=== PATIENT | female | born 1995 | race African-American/Black ===

== ENCOUNTER 2020-10-09 09:55 | Emergency (ER) | payer OTHER, SELFPAY ==
[2020-10-09 10:10] VITALS: BP 112/62; PULSE 90; RESP 16; TEMP 37.3; O2SAT 99
--- NOTE | 2020-10-09 10:18 | ED.DENTAL ---
HPI - Dental/Oral General Chief complaint: Dental/Oral Stated complaint: abscess in mouth Time Seen by Provider: 10/09/20 10:19 Source: patient and RN notes reviewed Mode of arrival: ambulatory Limitations: no limitations History of Present Illness HPI Narrative: 25-year-old female presents with concern for dental pain, a bump on her gumline. Reports she has been having left lower dental pain for about a week, noticed a bump on her gumline yesterday. She denies any foul taste in her mouth, swollen lips, swollen tongue, drooling, difficulty swallowing, fever, body aches, chills. Reports she does not currently have a dentist. Reports she has had a dental abscess in the past and another area of her mouth. MD Complaint: tooth pain Location: Tooth # (19) Related Data Home Medications Medication Instructions Recorded Confirmed medroxyprogesterone [Depo-Provera 150 mg IM [id number] 10/09/20 10/09/20 Contraceptive] Allergies Allergy/AdvReac Type Severity Reaction Status Date / Time No Known Allergies Allergy Verified 10/09/20 10:15 Review of Systems Review of Systems: Narrative: CONSTITUTIONAL: Denies malaise, chills, sweats, or fever. EYES: Denies visual changes, redness, or discharge. ENT: Denies swollen lips, swollen tongue, drooling. Reports left lower dental pain, bump on her gumline CARDIOVASCULAR: Denies chest pain, palpitations, or edema. RESPIRATORY: Denies cough or dyspnea. GASTROINTESTINAL: Denies abdominal pain, nausea, vomiting SKIN: Denies rash or itching. MUSCULOSKELETAL: Denies myalgia. NEUROLOGIC: Denies numbness, weakness, or headache. All systems reviewed & are unremarkable except as noted in HPI and below PMFSH Social History Social History Gender identity (if verbalized by the patient): Female Comments At time of signature, agree with nursing past medical, surgical, social and family history. There is no relevant family history pertinent to the presenting complaint Exam Narrative: Exam Narrative: GENERAL: Well-appearing, well-nourished, and in no acute distress. HEAD: Normocephalic, atraumatic. EYES: PERRLA, conjunctivae clear, and EOMI. No nystagmus. ENT: Nares clear, turbinates pink, no rhinorrhea or epistaxis. Mucous membranes moist. Oropharynx without erythema edema or lesions. Tonsils not enlarged and without exudate. No drooling. Floor of the mouth is soft. Small periapical abscess noted near tooth 19. Many caries noted NECK: Supple. CHEST: No respiratory distress. Speaks in full sentences. HEART: Regular rate and rhythm. SKIN: Warm, dry, no rash. NEURO: Alert and oriented x3. PSYCH: Normal mood and affect Course Course Emergency Course: Patient is aware of diagnosis, understands and agrees to treatment plan. Anticipatory guidance given. Patient agrees to follow-up as directed and is aware of reasons to seek care at the emergency department. Portions of this record may have been created with voice recognition software Vital Signs Vital signs: Vital Signs Temperature 99.2 F 10/09/20 10:10 Pulse Rate 90 10/09/20 10:10 Respiratory Rate 16 10/09/20 10:10 Blood Pressure 112/62 10/09/20 10:10 Pulse Oximetry 99 10/09/20 10:10 Temperature 99.2 F 10/09/20 10:10 Pulse Rate 90 10/09/20 10:10 Respiratory Rate 16 10/09/20 10:10 Blood Pressure 112/62 10/09/20 10:10 Pulse Oximetry 99 10/09/20 10:10 Reviewed. MDM - Dental/Oral MDM Narrative Medical decision making narrative: Patients pain and complaint coupled with physical findings are consistant with dentalgia. There are no focal signs of space occupying lesions that are compromising to the airway; no dysphagia, odynophagia, dysphonia, or dyspnea. No uvular deviation or soft palate edema. Patient is non-toxic appearing. The floor of the mouth is soft with no signs of Alexsander's Angina; no induration below mandible, no neck pain. Patient is without trismus or drooling and able to swallow secretio
== END 2020-10-09 10:28 | disposition home or self-care (01) ==
PROVIDERS: Emergency Provider Nurse Practitioner
DX: K04.7 Periapical abscess without sinus (principal)
CPT/HCPCS: 99203; G0463